=== PATIENT | female | born 1970 | race Caucasian/White ===

== ENCOUNTER → 2019-11-28 | Outpatient (CLI) | payer BC ==
--- NOTE | 2019-11-28 17:21 | RAD ---
EXAM: PET W CT SKULL TO MIDTHIGH EXAM DATE: 11/28/2019 INDICATION: Colon mass RADIOPHARMACEUTICAL: 15.08 mCi of F-18 Fluorodeoxyglucose (FDG) I.V. via the right antecubital fossa. TECHNIQUE: Patient weight: 220 pounds. Following at least four-hour fasting, the patient's blood glucose was 106 mg/dl. Approximately 1 hour after administration of FDG, overlapping emission scanning was performed from the orbital meatal line through the pelvis. A low-dose CT was performed for attenuation correction purposes and anatomic localization. Fused images of PET and CT were reviewed. Any standardized uptake values (SUV) reported are maximum values within a volume region of interest, expressed in gm/ml. COMPARISON: None currently available. FINDINGS: PET: In the head and neck, no abnormal FDG uptake. In the chest, no abnormal FDG uptake. Background FDG uptake in the mediastinum measures 4.3 Max SUV. In the abdomen and pelvis, no abnormal FDG uptake. Background FDG uptake in the liver shows a max SUV of 4.3 as well. No abnormal FDG uptake in the muscle skeletal system either. CT: The head and neck shows no mass or adenopathy. Chest shows no suspicious lung nodules, mass, pleural effusion or adenopathy. Abdomen and pelvis show no mass, adenopathy, ascites or organized fluid collection. Cholecystectomy. The proximal sigmoid colon shows some mild pericolonic soft tissue stranding of uncertain significance. Scattered colonic diverticuli are also present. No findings of bowel obstruction, perforation or acute inflammation. The appendix is normal. Musculoskeletal system shows no findings suspicious for metastatic disease. IMPRESSION: No evidence of PET FDG avid malignancy in the included field of view. Electronically signed by: Kody Warner MD (11/28/2019 5:17 PM) [id number]
== END | disposition home or self-care (01) ==
LOC: PETSC 10:26
PROVIDERS: ATTEND Family Medicine
DX: Z00.01 Encounter for general adult medical examination with abnormal findings (principal); K57.30 Diverticulosis of large intestine without perforation or abscess without bleeding; Z90.49 Acquired absence of other specified parts of digestive tract
CPT/HCPCS: 78815; A9552